=== PATIENT | female | born 1955 | race Caucasian/White ===

== ENCOUNTER 2020-03-07 13:50 | Outpatient (CLI) | payer MEDICARE, SELFPAY ==
[2020-03-07 14:57] LABS: Anion Gap 11.1 mmol/L (7-16); Blood Urea Nitrogen 19 mg/dL (7-17); Calcium 9.4 mg/dL (8.4-10.2); Carbon Dioxide 32 mmol/L (22-30); Chloride 100 mmol/L (98-107); Estimated Glomerular Filt Rate > 60; Glucose 208 mg/dL (65-105); Potassium 4.1 mmol/L (3.4-5.0); Sodium 139 mmol/L (137-145)
== END 2020-03-07 13:51 | disposition home or self-care (01) ==
PROVIDERS: Visit Provider Internal Medicine Cardiovascular Disease
DX: E11.59 Type 2 diabetes mellitus with other circulatory complications (principal); I10 Essential (primary) hypertension
CPT/HCPCS: 36415; 80048

== ENCOUNTER 2020-11-06 09:15 | Outpatient (CLI) | payer MEDICARE, OTHER, SELFPAY ==
[2020-11-06 10:32] LABS: Free T4 Free Thyroxine 1.15 ng/mL (0.78-2.19)
== END 2020-11-06 09:16 | disposition home or self-care (01) ==
PROVIDERS: Visit Provider Internal Medicine Cardiovascular Disease
DX: R00.2 Palpitations (principal); R00.0 Tachycardia, unspecified; I48.0 Paroxysmal atrial fibrillation
CPT/HCPCS: 36415; 84439; 84443

== ENCOUNTER 2021-07-10 19:47 | Emergency (ER) | payer MEDICARE, OTHER, SELFPAY ==
--- NOTE | ~2021-07-10 | XR_ITS ---
EXAMINATION: XR chest 2V 07/10/2021 20:27 INDICATION: Generalized weakness and shortness of breath. History of A. fib. PROCEDURE: 2 view chest COMPARISON: No prior studies for comparison. FINDINGS: The lungs are clear. The cardiomediastinal silhouette is within normal limits. There are no pleural effusions. There is no pneumothorax suspected. IMPRESSION: 1: NO ACUTE CARDIOPULMONARY DISEASE. Reviewed, dictated and finalized at location A. EON PARTNER
[2021-07-10 19:50] VITALS: BP 138/68; PULSE 102; RESP 20; TEMP 36.9; O2SAT 96
--- NOTE | 2021-07-10 20:13 | ECG_ITS ---
Measurements Intervals [place] Rate: 96 P: -27 PA: 156 QRS: -12 QRSD: 86 T: 18 QT: 321 QTc: 406 Interpretive Statements SINUS RHYTHM VOLTAGE CRITERIA FOR LVH BORDERLINE R WAVE PROGRESSION, ANTERIOR LEADS BASELINE ARTIFACT- I, II, AVR, AVL, AVF BORDERLINE ECG Electronically Signed On 07-10-2021 22:05:42 CUSTOMER SALES CONSULTANT by Zach Elkins D.O.
[2021-07-10 21:45] LABS: Basophils Percent Auto 0.2 % (0.2-1.2); Eosinophils Percent Auto 0.1 % (0-4.4); Hematocrit 38.6 % (37.0-47.0); Hemoglobin 13.4 g/dL (12.0-15.0); Immature Granulocyte Absolute 0.04 K/mm3 (0.00-0.031); Immature Granulocyte Percent A 0.5 % (0-0.5); Immature Platelet Fraction Pct 7.3 % (0.9-11.2); Lymphocytes Absolute Auto 1.49 K/mm3 (0.9-3.2); Lymphocytes Percent Auto 17.1 % (18.3-44.2); Mean Corpuscular HGB Conc 34.7 g/dl (32-36); Mean Corpuscular Hemoglobin 32.1 pg (26-34); Mean Corpuscular Volume 92.3 fl (80-100); Mean Platelet Volume 11.6 fl (7.4-10.4); Monocytes Absolute Auto 0.8 K/mm3 (0.1-0.6); Monocytes Percent Auto 9.3 % (2.6-8.5); Neutrophils Absolute Auto 6.3 K/mm3 (1.3-6.7); Neutrophils Percent Auto 72.8 % (45.5-73.1); Platelet Count Result 113 k/mm3 (150-375); Red Blood Count 4.18 M/mm3 (4.2-5.4); Red Cell Distribution Width 11.9 % (11.5-14.5); White Blood Count 8.7 K/mm3 (4.5-10.0)
--- NOTE | 2021-07-10 21:48 | ED.WEAKNESS ---
HPI - Weakness General Chief complaint: Weakness Stated complaint: Weakness, COVID Time Seen by Provider: 07/10/21 20:57 Source: RN notes reviewed History of Present Illness HPI Narrative: Patient presents to emergency department from home for weakness. Patient states she has been having progressive symptoms for the past 1 week. She states her tested positive for Covid approximately 2 weeks ago she states she did not take test that she felt like she was likely positive with her symptoms she states that she has been having a cough this been nonproductive as well as shortness of breath with ambulation she notes intermittent subjective fevers and nausea decreased appetite she denies any chest pain abdominal pain or diarrhea. Patient states she is on Eliquis for atrial fibrillation Related Data Home Medications Medication Instructions Recorded Confirmed apixaban [Eliquis] 5 mg PO BID 07/07/19 07/07/19 furosemide 07/10/21 insulin glargine [Basaglar KwikPen SUBCUT 07/10/21 U-100 Insulin] losartan 07/10/21 metformin mg BID 07/10/21 metoprolol succinate PO 07/10/21 simvastatin mg 07/10/21 Allergies Allergy/AdvReac Type Severity Reaction Status Date / Time No Known Allergies Allergy Verified 07/10/21 21:06 Review of Systems Review of Systems: Gen.: Subjective fevers Eyes: Denies eye pain or visual change ENT: Denies congestion Respiratory: See HPI CV: Denies chest pain or palpitations GI: Denies abdominal pain or diarrhea. Reports nausea Musculoskeletal: Denies back pain or muscle pain Neuro: Ports weakness Skin: Denies rash Except as documented, all other systems reviewed and negative FORMERLY [facility], [facility] Past Medical History Medical History (Updated 07/10/21 @ 23:08 by Mychal Hopson DO) A-fib Diabetes HLD (hyperlipidemia) HTN (hypertension) Surgical History Surgical History History of knee replacement bilateral knees Social History Social History Gender identity (if verbalized by the patient): Female Exam Narrative: APPEARANCE: No acute distress, nontoxic, resting in bed EYES: EOMI HEENT: Normocephalic, atraumatic, OMM RESPIRATORY: No respiratory distress Clear to auscultation bilaterally with no rhonchi wheezing or rales. CARDIOVASCULAR: Regular rate and rhythm without murmurs rubs or gallops. ABDOMINAL: Soft, nontender, nondistended, no rebound or guarding MUSCULOSKELETAl: Moves all extremities. No clubbing, cyanosis or edema. NEURO: Awake and alert. Following commands, speech normal, no focal deficits SKIN:: Warm, dry. No rashes lesions or abrasions PSYCHIATRIC: Normal affect/mood, Course Course Emergency Course: Patient states she is feeling better at this time Patient able to walk to the restroom with no difficulty Discussed with patient results of workup and diagnosis. Discussed need for follow-up with primary care, proper use of medication, and reasons to return to the emergency department. Patient understands and agrees to current treatment plan Vital Signs Vital signs: Vital Signs Temperature 98.4 F 07/10/21 19:50 Pulse Rate 102 H 07/10/21 19:50 Respiratory Rate 20 07/10/21 19:50 Blood Pressure 138/68 07/10/21 19:50 Pulse Oximetry 96 07/10/21 19:50 Temperature 98.4 F 07/10/21 19:50 Pulse Rate 90 07/10/21 22:41 Respiratory Rate 20 07/10/21 22:41 Blood Pressure 139/67 07/10/21 22:41 Pulse Oximetry 99 07/10/21 22:41 MDM - Weakness MDM Narrative Medical decision making narrative: Patient presents for generalized weakness over the past week. Patient has been with Covid and suspect the patient also is Covid positive and swab was sent patient on work-up was found to have UTI treated with antibiotics also found to have hypokalemia and given potassium in ED. patient is on Eliquis which she has been taking and is adequately coagulate
[2021-07-10 21:54] LABS: Alanine Aminotransferase 36 U/L (4-35); Albumin Level 3.9 g/dL (3.5-5.1); Alkaline Phosphatase 92 U/L (38-126); Anion Gap 9 mmol/L (8-16); Aspartate Amino Transferase 43 U/L (14-36); Bilirubin,Total 0.7 mg/dL (0.2-1.3); Blood Urea Nitrogen 18 mg/dL (7-17); Calcium 8.7 mg/dL (8.4-10.2); Carbon Dioxide 29 mmol/L (22-30); Chloride 95 mmol/L (98-107); Estimated CRCL calculation 73 ml/min; Estimated Glomerular Filt Rate > 60; Glucose 214 mg/dL (65-110); Potassium 2.9 mmol/L (3.4-5.0); Sodium 133 mmol/L (137-145)
[2021-07-10 21:55] LABS: INR 1.4; Prothrombin Time 17.1 Seconds (11.1-14.7)
[2021-07-10 21:56] LABS: Partial Thromboplastin Time 33.3 SECONDS (22.3-36.8)
[2021-07-10 21:57] VITALS: BP 141/76; PULSE 93; RESP 16; O2SAT 98
[2021-07-10] MEDS: POTASSIUM CHLORIDE 20 MEQ TABLET 40 MEQ PO (22:02)
[2021-07-10 22:04] LABS: Lipase 29 U/L (23-300)
[2021-07-10] MEDS: SODIUM CHLORIDE 0.9% IV 1,000 ML 999 ML IV CONT (22:04)
[2021-07-10 22:10] LABS: Band Neutrophils Percent 2 % (0-6); Lymphocytes Absolute Manual 1.91 K/mm3 (1.1-4.5); Monocytes Absolute Manual 0.78 K/mm3 (0.1-0.90); Monocytes Percent Manual 9 % (3-9); Neutrophils Percent Manual 67 % (46-73); Total Cells Counted 100
[2021-07-10 22:11] LABS: Platelet Estimate Decreased (Adequate)
[2021-07-10 22:14] LABS: Magnesium 1.8 mg/dL (1.6-2.3)
[2021-07-10 22:23] LABS: Add Urine Microscopic? YES; Appearance Urine Cloudy (Clear); Bacteria Urine 2+ /hpf; Bilirubin Urine Negative (Negative); Blood Urine Negative (Negative); Color Urine Yellow (Yellow); Glucose Urine UA Negative (Negative); Ketones Urine Negative (Negative); Leukocyte Esterase Ur 3+ LEU/UL (Negative); Mucus Urine Rare /lpf; Nitrate Urine Negative (Negative); Protein Urine Negative (Negative); Specific Grav Ur 1.016 (1.001-1.035); Squamous Epithelial Cell Urine Many /hpf (Few); Urobilinogen Urine Negative mg/dL (<2.0); WBC Urine 31-50 /hpf
[2021-07-10 22:41] VITALS: BP 139/67; PULSE 90; RESP 20; O2SAT 99
[2021-07-10 23:33] VITALS: BP 139/67; PULSE 103; RESP 16; O2SAT 100
[2021-07-11 17:10] LABS: SARS-CoV-2 RNA PCR Positive
== END 2021-07-10 23:34 | disposition home or self-care (01) ==
PROVIDERS: Emergency Provider Emergency Medicine
DX: U07.1 COVID-19 (principal); N39.0 Urinary tract infection, site not specified; R53.1 Weakness; I48.91 Unspecified atrial fibrillation; Z79.01 Long term (current) use of anticoagulants; E11.9 Type 2 diabetes mellitus without complications; E78.5 Hyperlipidemia, unspecified; I10 Essential (primary) hypertension; Z79.84 Long term (current) use of oral hypoglycemic drugs; Z79.4 Long term (current) use of insulin; Z96.653 Presence of artificial knee joint, bilateral; E87.6 Hypokalemia; R94.31 Abnormal electrocardiogram [ECG] [EKG]
CPT/HCPCS: 36415; 71046; 80053; 81001; 83690; 83735; 85025; 85055; 85610; 85730; 87086; 87088; 93005; 96365; 99284; A9270; C9803; J0696; J7030; U0003; U0005

== ENCOUNTER 2023-01-11 12:39 | Emergency (ER) | payer MEDICARE, OTHER, SELFPAY ==
--- NOTE | ~2023-01-11 | XR_ITS ---
EXAMINATION: XR ribs LT 2V w CXR 2V DATE: 01/11/2023 13:40 INDICATION: Chest pain. Fall. TECHNIQUE: Frontal and lateral views of the chest and 2 views on 4 radiographs of the left ribs were obtained. COMPARISON: Chest 2 views 07/10/2021, chest CT 05/18/2018 FINDINGS: CHEST TWO VIEWS: The chest demonstrates clear lungs without pneumonia, pleural effusion, or pneumotho rax. The heart size is normal. Surgical clips in the right upper quadrant are likely from cholecystec alena. LEFT RIBS: There is no rib fracture. IMPRESSION: 1. No rib fracture. Reviewed, dictated and finalized at location A. IMPRESSION: 1. No rib fracture.
[2023-01-11 12:41] VITALS: BP 150/75; PULSE 87; RESP 16; TEMP 36.6; O2SAT 100
--- NOTE | 2023-01-11 13:37 | ED.GENADULT ---
HPI - General Adult General Chief complaint: Extremity Injury, Upper Stated complaint: fall last night-left wrist and rib pain Time Seen by Provider: 01/11/23 12:54 History of Present Illness HPI narrative: Patient is a 67-year-old female who presents ER with pain to the left anterior chest. She had a trip and fall in her yard yesterday. She did develop bruising to her left wrist but has normal range of motion no pain. She has pain to her anterior left chest that is worse with deep breath. No dyspnea. No cough. She has taken [id number] medication for her pain. Patient did not strike her head or lose consciousness Related Data Home Medications Medication Instructions Recorded Confirmed apixaban 5 mg tablet (Eliquis) 5 mg PO BID 07/07/19 07/07/19 furosemide 40 mg tablet 07/10/21 insulin glargine 100 unit/mL (3 subcut 07/10/21 mL) subcutaneous pen (Basaglar KwikPen U-100 Insulin) losartan 50 mg tablet 07/10/21 metformin 1,000 mg tablet mg BID 07/10/21 metoprolol succinate 25 mg PO 07/10/21 tablet,extended release 24 hr simvastatin 40 mg tablet mg 07/10/21 Allergies Allergy/AdvReac Type Severity Reaction Status Date / Time No Known Allergies Allergy Verified 01/11/23 12:39 Review of Systems Cardiovascular: Cardiovascular: Reports chest pain, Denies rapid heart rate and Denies radiating jaw, neck or arm pain Respiratory: Respiratory: Denies cough, Denies dyspnea and Denies wheezing Gastrointestinal: Gastrointestinal: Denies abdominal pain, Denies nausea and Denies vomiting Musculoskeletal: Musculoskeletal: Denies back pain, Denies arthralgias and Denies joint swelling Neurologic: Denies syncope, Denies headache(s), Denies focal weakness and Denies numbness PMF Past Medical History Medical History (Updated 01/11/23 @ 14:33 by Antonio Wall MD) A-fib Diabetes HLD (hyperlipidemia) HTN (hypertension) Surgical History Surgical History History of knee replacement bilateral knees Social History Social History Gender identity (if verbalized by the patient): Female Exam Narrative: GENERAL: Well-appearing, well-nourished, and in no acute distress. HEAD: Normocephalic, atraumatic. EYES: PERRL and EOMI. ENT: Mucous membranes moist. CHEST: Clear to auscultation. No respiratory distress. Palpation left anterior chest wall. Breast. HEART: Regular rate and rhythm. Normal peripheral pulses. EXTREMITIES: Normal range of motion. No edema. Bruising dorsal aspect left wrist/hand without joint line tenderness or limitation range of motion. SKIN: Warm, dry, no rash. NEURO: Alert and oriented x3. PSYCH: Normal mood and affect. Course Course Emergency Course: Patient informed of results. Discussed pain control with acetaminophen that she is on a blood thinner and cannot take anti-inflammatories. Vital Signs Vital signs: Vital Signs Temperature 97.8 F 01/11/23 12:41 Pulse Rate 87 01/11/23 12:41 Respiratory Rate 16 01/11/23 12:41 Blood Pressure 150/75 H 01/11/23 12:41 Pulse Oximetry 100 01/11/23 12:41 Oxygen Delivery Room Air 01/11/23 12:41 Temperature 97.8 F 01/11/23 12:41 Pulse Rate 87 01/11/23 12:41 Respiratory Rate 16 01/11/23 12:41 Blood Pressure 150/75 H 01/11/23 12:41 Pulse Oximetry 100 01/11/23 12:41 Oxygen Delivery Room Air 01/11/23 12:41 Medical Decision Making Vital Signs Vital Signs: Vital Signs Temperature 97.8 F 01/11/23 12:41 Pulse Rate 87 01/11/23 12:41 Respiratory Rate 16 01/11/23 12:41 Blood Pressure 150/75 H 01/11/23 12:41 Pulse Oximetry 100 01/11/23 12:41 Oxygen Delivery Room Air 01/11/23 12:41 Temperature 97.8 F 01/11/23 12:41 Pulse Rate 87 01/11/23 12:41 Respiratory Rate 16 01/11/23 12:41 Blood Pressure 150/75 H 01/11/23 12:41 Pulse Oximetry 1
== END 2023-01-11 14:40 | disposition home or self-care (01) ==
PROVIDERS: Emergency Provider Emergency Medicine
DX: R07.81 Pleurodynia (principal); I48.91 Unspecified atrial fibrillation; E11.9 Type 2 diabetes mellitus without complications; E78.5 Hyperlipidemia, unspecified; I10 Essential (primary) hypertension; Z79.84 Long term (current) use of oral hypoglycemic drugs; Z79.01 Long term (current) use of anticoagulants; Z79.4 Long term (current) use of insulin; Z96.653 Presence of artificial knee joint, bilateral
CPT/HCPCS: 71046; 71100; 99283

== ENCOUNTER 2025-02-22 23:25 | Emergency (ER) | payer MEDICARE, OTHER, SELFPAY ==
--- NOTE | ~2025-02-22 | XR_ITS ---
XR chest 2V Ordering provider: Walter Wilkes MD History: 69 years Female with . Chest Pain ACOSS CHEST AND SHOULDER BLADES . Comparison: January 11, 2023 FINDINGS: MEDIASTINUM: The cardiac silhouette is not enlarged. LUNGS: No infiltrates, effusions or pneumothorax. OTHER: No free air under the diaphragm. Degenerative changes of the spine. IMPRESSION: No acute cardiopulmonary pathology. Reviewed, dictated and finalized at location A.
--- OUTSIDE RECORDS SUMMARY | 2025-02-22 23:27 | XMS_ITS | Referral Summary ---
Author Organization [facility] [address] Address [address] [place] [address] Care Team Providers Care Container Finisher Name Role Phone Shin Clifton MD Unavailable [phone] Renetta Duncan MD Primary Care Provid er Encounters Date Type Department Care Team Description 02/06/2025 1:00 PM CDT Office Visit [facility] of [address] [address] Diana Mckenzie PA Type 2 diabetes mellitus with hyperglycemia, with long-term current use of insulin (HCC) (Primary Dx); Hypertension associated with diabetes (HCC); Hyperlipidemia associated with type 2 diabetes mellitus (HCC) from Last 3 Months Allergies Active Allergy Reactions Criticality Noted Date Comments Guaifenesin Headache Low 10/12/2003 Semaglutide Nausea & Vomiting Medium 05/10/2024 Medications cholecalcifer ol (VITAMIN D3) 1,000 unit capsule take 1 by Oral route once 0 0 016 Active no.75-iron-fo late no1 (VITAFOL HARESH) 18 mg iron- 1 mg tablet take 1 tablet by oral route every day 0 0 016 Active simvastatin (ZOCOR) 40 mg tablet take 1 tablet by oral route every day in the evening 0 0 016 Active losartan (COZAAR) 50 mg tablet take 1 tablet by oral route every day 0 0 016 Active cranberry 400 mg capsule 400 mg. 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 before breakfast 45 mL 3 024 Active insulin aspart (NovoLOG) 100 unit/mL (3 mL) pen for injection Inject 10 Units under the skin 2 (two) times a day before breakfast and dinner 15 mL 11 Active Additional Information Patient taking differently: 5 Unitssubcutaneous 2 times daily before meals (bkfst, dinner), Reported on 02/06/2025 glipiZIDE XL (GLUCOTROL XL) 10 mg 24 hr tabletIndicat ions:type 2 diabetes mellitus Take 1 tablet (10 mg total) by mouth daily 90 tablet 3 024 2024 Active metFORMIN (GLUCOPHAGE) 1,000 mg tabletIndicat ions:Type 2 diabetes mellitus with hyperglycemia , with long-term current use of insulin ([facility]) Take 1 tablet (1,000 mg total) by mouth 2 (two) times a day with meals 180 tablet 3 Active Dexcom G7 Sensor deviceIndicat ions:Type 2 diabetes mellitus with hyperglycemia , with long-term current use of insulin ([facility]) Change sensor every 10 days Dx: E11.65 3 each 024 Active OneTouch Delica Plus Lancet 33 gauge miscIndicatio ns:Type 2 diabetes mellitus with hyperglycemia , with long-term current use of insulin ([facility]) TEST BLOOD SUGAR 3 TIMES A DAY Dx: E11.65 100 each 025 Active blood glucose diagnostic (OneTouch Ultra Blue Test Strip) stripIndicati ons:Type 2 diabetes mellitus with hyperglycemia , with long-term current use of insulin ([facility]) TEST BLOOD SUGAR 3 TIMES A DAY. E11.65, Z79.4 300 each 1 025 Active clobetasoL (TEMOVATE) 0.05 % cream APPLY THIN COAT TO AFFECTED AREA TWICE A DAY 025 Active metoprolol XL (TOPROL-XL) 25 mg extended release tablet TAKE 1 TABLET DAILY 90 tablet 2 025 Active OneTouch Ultra Blue Test Strip strip TEST BLOOD SUGAR 3 TIMES A DAY 021 2024 Discontinued(R eorder) metoprolol XL (TOPROL-XL) 25 mg extended release tablet TAKE 1 TABLET DAILY 90 tablet 2 024 2024 Discontinued Active Problems Problem Noted Date Diagnosed Date Hyperlipidemia associated with type 2 diabetes jenny ardon 09/12/2024 Assessment & Plan (02/06/2025 3:57 PM CDT): Chronic problem. On statin therapy, no changes. Assessment & Plan (09/19/2024 1:19 PM MANAGER ASSET): Chronic problem. On statin therapy, no changes. Type 2 diabetes mellitus wit h hyperglycemia, with long-term current use of insulin 05/10/2024 Assessment & Plan (02/06/2025 3:58 PM CDT): Chronic problem, not at goal with nocturnal hypoglycemia. Stop glipizide. If persistent lows adjust Basaglar as follows. Call if persistent lows even after these adjustments. She just had routine labs with PCP, will request copy for our records. Stop glipizide. Continue metformin. Continue Basaglar 19 in the morning and 14 at night. If after stopping the glipizide, you're still getting woken up with low sugars overnight, change Basaglar to 30 units in the morning. Call after this if you're still having low sugars. Continue same Novolog 8-10 units at meals. Assessment & Plan (09/19/2024 3:49 PM MANAGER ASSET): Chronic problem, improving but not at goal with hypoglycemia. Try lowering Basaglar to 14 units at night. Continue 19 units in the morning. If this does not resolve her lows she can let us know and we'll lower the glipizide dose (she currently has a lot of 10 mg left so will try adjusting the Basaglar first instead). She understands. Continue metformin and NL the same. Watch the carb intake at her 9pm snack. Assessment & Plan (05/10/2024 12:57 PM CDT): Chronic, not at goal Hemoglobin A1c target between 7- 7.5 with glucoses in the 120 to 160 range were discussed Importance of exercise also explained. I encouraged the patient to at least 30 minutes daily aerobic and resistance exercise Patient to continue working on low calorie low carb diet Medication adjusted as follows: Continue monitoring your sugars with DEXCOM Stay on Basaglar, 38 units in the morning Take Novolog, 5 units with lunch and dinner. For sugar over 200, take 7 units Take Glipizide , only in the morning Stay on Metformin 1000 mg, twice a day, with meals PSVT (paroxysmal supraventricular tachycardia) 0 12/21/2022 Lipid screening 10/21/2022 History of COVID-19 10/07/2021 Tachycardia 11/06/2020 Palpitations 11/06/2020 Hypertension associated with diabetes 03/06/2019 Assessment & Plan (02/06/2025 3:57 PM CDT): Chronic problem, Controlled on losartan, furosemide, metoprolol. No changes. Assessment & Plan (09/19/2024 1:18 PM MANAGER ASSET): Chronic problem, Controlled on losartan, furosemide, metoprolol. No changes. GRESHAM (dyspnea on exertion) 05/18/2018 Chest pain 05/09/2018 Chronic anticoagulation 09/28/2017 Hypertension 09/28/2017 PAF (paroxysmal atrial fibrillation) 09/28/2017 Morbid obesity with BMI of 40.0-44.9, adult 02/13 Body mass index 40+ - severely obese 09/15/2016 Overview (11/19/2016): Morbid obesity with BMI of 40.0-44.9, adult Essential hypertension 05/22/2016 Overview (11/19/2016): Essential hypertension Type 2 diabetes mellitus with complication 05/22 Overview (11/19/2016): Type 2 diabetes mellitus without complication, without long-term current use of insulin Atrial fibrillation, currently in sinus rhythm 1 Overview (11/19/2016): Atrial fibrillation, currently in sinus rhythm Obesity with body mass index 30 or greater 05/22 Overview (11/20/2016): Obesity with body mass index 30 or greater Social History Tobacco Use Types Packs/Day Years Used Date Smoking Tobacco: Never Cigarettes Smokeless Tobacco: Never Tobacco Cessation:Counseling Given: Not Answered Alcohol Use Standard Drinks/Week Comments No 0 (1 standard drink = 0.6 oz pur e alcohol) AUDIT-C Answer Date Recorded Q1: How often do you have a drink containing alcohol? Never 05/10/2024 Q2: How many drinks containi ng alcohol do you have on a typical day when you are drinking? Patient does not drink Q3: How often do you have si x or more drinks on one occasion? Never 05/10/2024 PHQ-2 Answer Date Recorded PHQ-2 Total Score (If total score is 3 or more points, staff should administer the PHQ-9) 0 05/10/2024 Comments No Sex and Gender Information Value Date Recorded Sex Assigned at Not on file Legal Sex Female 3:47 PM MANAGER ASSET Gender Identity Female 10/30/2020 10:21 AM CDT Sexual Orientation Straight 05/10/2024 11 :00 AM CDT Last Filed Vital Signs Vital Sign Reading Time Taken Comments Blood Pressure 116/64 02/06/2025 1:04 PM CDT Pulse 85 02/06/2025 1:04 PM CDT Temperature 36.6 C (97.9 F) 05/10/2018 8:19 AM CDT Respiratory Rate 16 02/06/2025 1:04 PM CDT Oxygen Saturation 98% 08/24/2024 8:15 AM MANAGER ASSET Inhaled Oxygen Concentration - - Weight 117.9 kg (260 lb) 02/06/2025 1:04 PM CDT Height 162.6 cm (5' 4) 02/06/2025 1:04 PM CDT Body Mass Index 44.63 02/06/2025 1:04 PM CDT Plan of Treatment Not on file Procedures Procedure Name Priority Date/Time Associated Diagnosis Comments POCT LIPID PANEL Routine 02/06/2025 1:07 PM CDT Type 2 diabetes mellitus with hyperglycemia, with long-term current use of insulin (HCC) Hyperlipidemia associated with type 2 diabetes mellitus (HCC) POCT GLUCOSE Routine 02/06/2025 1:07 PM CDT Type 2 diabetes mellitus with hyperglycemia, with long-term current use of insulin (HCC) POCT HEMOGLOBIN A1C Routine 02/06/2025 1 :07 PM CDT Type 2 diabetes mellitus with hyperglycemia, with long-term current use of insulin (HCC) HM CREATININE Routine 03/29/2024 5:44 PM CDT HM ALBUMIN CREATININE RATIO, URINE Routine 03/29/2024 5:44 PM CDT from Last 3 Months or Most Recently Relevant to Health Maintenance Results * (ABNORMAL) POCT hemoglobin A1c (02/06/2025 1:07 PM CDT) [facility] Hemoglobin A1C, POC 6.0(A) 4.0 - 5.6 % Capillary blood 02/06/2025 1 :07 PM CDT us Diana WHITAKER POINT OF CARE TEST AARON CALHOUN Final Result * POCT lipid panel (02/06/2025 1:07 PM CDT) [facility] Cholesterol, POC 116 <200 MG/DL HDL, POC 49 >=40 mg/dL Triglycerides, POC 110 <=149 mg/dL LDL Cholesterol POC 45 <=129 mg/dL Chol/HDL Ratio, POC 2.4 NONE Non-HDL Cholesterol, POC 67 NONE mg/dL Cholesterol Total, POC 116 30 - 199 mg/dL Capillary blood 02/06/2025 1 :07 PM CDT Result [facility] Diana WHITAKER POINT OF CARE TEST ORDE RABLES Final Result * POCT glucose (02/06/2025 1:07 PM CDT) Glucose Blood, POC 73 Normal Fasting 70 - 100, Random <200 mg/dL Comment:PPG 2 Hrs Blood 02/06/2025 1:07 PM CDT Result [facility] Diana WHITAKER POINT OF CARE TEST ORDE RABLES Final Result * (ABNORMAL) HM ALBUMIN CREATININE RATIO, URINE (03/29/2024 5:44 PM CDT) SCRIBED HM ALBUMIN CREATININE RATIO, URINE 13(A) 40 - 180 EXTERNAL LAB Result [facility] Historical Provider HEALTH MAINTENANCE Edited Result - Final Performing Organization Address City/[facility]/ZIP Co de Phone Number EXTERNAL LAB * HM CREATININE (03/29/2024 5:44 PM CDT) SCRIBED Creatinine 0.68 0.60 - 1.10 mg/dl EXTERNAL LAB SCRIBED eGFR in >90 >90 EXTERNAL LAB SCRIBED eGFR in NonAfrican Nigerien >90 >90 EXTERNAL LAB Result [facility] Historical Provider HEALTH MAINTENANCE Edited Result - Final EXTERNAL LAB from Last 3 Months or Most Recently Relevant to Health Maintenance Insurance MEDICARE [employer] Advance Directives For more information, please contact: [phone] * Full Code (Latest Code Status on File) Date Activated Date Inactivated Comments 05/09/2018 11:44 PM 05/10/2018 8:01 PM Care Teams Container Finisher Relationship Specialty Start Date End Date Renetta Duncan MD [address] [place] [address] PCP - General Internal Medicine 10/07/21 Shin Clifton MD [address] [facility] [address] Consulting Physician Cardiology 05/10/18
--- OUTSIDE RECORDS SUMMARY | 2025-02-22 23:27 | XMS_ITS | Clinical Summary ---
Author Organization [facility] Address [address] [place] [address] Care Team Providers Care Barker Peeler Name Role Phone Unavailable Primary Care Provider Unavailabl e Encounters Date Type Department Care Team Description 01/30/2025 External Device Data [facility] ABSTRACTION Provider, Abstract 01/09/2025 External Device Data [facility] ABSTRACTION Provider, Abstract 01/04/2025 External Device Data [facility] ABSTRACTION Provider, Abstract 01/03/2025 External Device Data [facility] ABSTRACTION Provider, Abstract 01/02/2025 External Device Data [facility] ABSTRACTION Provider, Abstract from Last 3 Months Social History Tobacco Use Types Packs/Day Years Used Date Smoking Tobacco: Never Assessed Comments No Sex and Gender Information Value Date Recorded Sex Assigned at Not on file Legal 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 Gender Identity Not on file Sexual Orientation Not on file Plan of Treatment Health Maintenance Due Date Last Done Comments DIABETES ANNUAL RETINAL EXAM 1972 DIABETES MICROALBUMIN ANNUAL SCREEN 1972 LDL CHOLESTEROL ANNUAL 1972 PNEUMOCOCCAL VACCINE 50+ YEA RS (1 of 2 - PCV) 1973 COLORECTAL SCREENING 10/17/1999 Colorectal Cancer Screening 10/17/1999 FIT-DNA Q 3 years 10/17/1999 FIT/FOBT Q 1 year 10/17/1999 Flex Sig/CT Colonography Q 5 years 10/17/1999 ZOSTER VACCINE (1 of 2) 2004 RSV VACCINE (60+ or ) (1 - Risk 60-74 years 1-dose series) 2014 OSTEOPOROSIS SCREENING 03/12/2025 03/12/2020, 2012 INFLUENZA VACCINE (#1) 2025 07/27/2023 DIABETES HBA1C Q 6 MONTHS 05/15/20252024, 09/19/2024, 07/31/2024, Additional history exists DIABETES ANNUAL FOOT EXAM 09/19/2025 09/19/2024 BREAST CANCER SCREENING 11/16/2025 11/17/19 25, 11/15/2023, 11/12/2022, Additional history exists DTAP/TDAP/TD VACCINES (2 - T d or Tdap) 11/07/2033 11/08/2023 Procedures Procedure Name Priority Date/Time Associated Diagnosis Comments MAMMO 3D AUDRA SCREEN BILAT W OR WO CAD Routine 11/16/2024 10:44 AM CDT Encounter for screening mammogram for malignant neoplasm of breast from Last 3 Months or Most Recently Relevant to Health Maintenance Results * MAMMO 3D AUDRA SCREEN BILAT W OR WO CAD (11/16/2024 10:44 AM CDT) Anatomical Region Laterality Modality Breast Bilateral Mammography 11/16/2024 10:4 5 AM CDT Impressions 11/16/2024 11:05 AM CDT IMPRESSION: NO RADIOGRAPHIC EVIDENCE OF MALIGNANCY. BI-RADS CATEGORY 1-Negative. Narrative 11/16/2024 11:05 AM CDT Computer Assisted Detection (CAD) used during interpretation. INDICATION: Screening. CC and MLO views of both breasts were obtained. 3D tomosynthesis was also utilized. Compared to 11/15/23. There has been no change. There is no abnormal mass or grouped microcalcifications present to suggest malignant disease. Breast Density: Almost entirely fatty. Renetta Duncan MD MAMMO ORDERABLES Final Resul t from Last 3 Months or Most Recently Relevant to Health Maintenance Insurance GENERIC PAYOR MEDICARE PART A AND B
--- OUTSIDE RECORDS SUMMARY | 2025-02-22 23:27 | XMS_ITS | Encounter Summary ---
Author Organization [facility] Address [address] [place] [address] Care Team Providers Care Strategic Account Manager Name Role Phone Fly Mcnally DO Primary Care Provider [phone] Fly Mcnally MD Primary Care Provider Shin Clifton MD Unavailable [phone] Renetta Duncan MD Primary Care Provid er Encounter Details Date Type Department Care Team (Late st Contact Info) Description 04/16/2016 Orders Only [facility] ProviderMarco A MD [address] [place] [id number] Social History Tobacco Use Types Packs/Day Years Used Date Smoking Tobacco: Never Assessed Comments Unknown Sex and Gender Information Value Date Recorded Sex Assigned at Not on file 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 Historical Provider [facility] JEFRY SAWYER Final Result documented in this encounter Visit Diagnoses Not on filedocumented in this encounter Care Teams Strategic Account Manager Relationship Specialty Start Date End Date Fly Mcnally DO [address] [place] [address] PCP - General 09/18/10 11/28/17 Fly Mcnally MD [address] [place] [address] PCP - General Internal Medicine 11/29/17 10/06/21 Renetta Duncan MD [address] [place] [address] PCP - General Internal Medicine 10/07/21 Shin Clifton MD [address] [facility] [address] [place] [address] Consulting Physician Cardiology 05/10/18 documented as of this encounter
--- OUTSIDE RECORDS SUMMARY | 2025-02-22 23:27 | XMS_ITS | Clinical Summary ---
Author Organization [facility] [employer] Address [address] [place] [address] Care Team Providers Care Moth Proofer Name Role Phone Fly Mcnally MD Primary Care Provider [phone] Albino Garcia MD Unavailable [phone] Source Comments [facility],non-owned Affiliates and Associated Physician Practices is amultiple site organization consisting of ambulatory clinics and hospital sitesin [place], [place], [place] and [place]. This disclosure is being madepursuant to the Care Everywhere program and may not contain all information available regarding this patient. Last updated 18.[facility] Allergies Active Allergy Reactions Criticality Noted Date Comments Guaifenesin Headache Low 10/12/2003 Medications * Be aware that medications may not be up to date on this document. Alwaysverify current medications with the patient. atenolol (TENORMIN) 25 MG tablet Take 12.5 mg by mouth daily before breakfast. Instructed to take AM of surgery 1 Active losartan (COZAAR) 100 MG tablet Take 50 mg by mouth once daily after breakfast. Instructed to take AM of surgery 1 Active furosemide (LASIX) 20 MG tablet Take 20 mg by mouth daily before breakfast. 1 Active glyBURIDE (DIABETA; MICRONASE) 2.5 MG tablet Take 2.5 mg by mouth daily with breakfast. Active metFORMIN (GLUCOPHAGE) 850 MG tablet Take 850 mg by mouth 2 times daily with breakfast and dinner. Active simvastatin (ZOCOR) 40 MG tablet Take 40 mg by mouth at bedtime. Active VITAMINS PO Take by mouth once daily after breakfast. Active naproxen (NAPROSYN) 500 MG tablet Take 500 mg by mouth 2 times daily. 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 Gender Identity Female 06/12/2021 9:22 AM CDT Sexual Orientation Straight 06/12/2021 9: 22 AM CDT Last Filed Vital Signs Vital Sign Reading Time Taken Comments Blood Pressure 114/70 04/03/2011 8:58 AM CDT Pulse 83 04/03/2011 5:55 AM CDT Temperature 36.5 C (97.7 F) 04/03/2011 5:55 AM CDT Respiratory Rate 18 04/03/2011 5:55 AM CDT Oxygen Saturation 98% 04/03/2011 5:55 AM CDT Inhaled Oxygen Concentration - - Weight 115.7 kg (255 lb) 04/24/2016 8:57 AM CDT Height 162.6 cm (5' 4) 04/24/2016 8:57 AM CDT Body Mass Index 43.77 04/24/2016 8:57 AM CDT Plan of Treatment Health Maintenance Due Date Last Done Comments BONE DENSITY TESTING 1955 COLOGUARD (AGES 45-75) - COL ON CA SCREENING 1954 COLON MONITORING 1954 COLONOSCOPY - COLON CA SCREENING 1954 CT COLONOGRAPHY - COLON CA SCREENING 1954 Colorectal Cancer Screening 1954 FIT - COLON CA SCREENING 1954 FLEX SIG - COLON CA SCREENING 1954 MAMMOGRAM 1955 MEDICARE AWV 12 MONTHS 1954 HEPATITIS C SCREENING 10/11/1972 DTAP/TDAP/TD VACCINES (1 - Tdap) 1973 PNEUMOCOCCAL VACCINE 50+ (1 of 1 - PCV) 2004 ZOSTER VACCINE (1 of 2) 2004 Respiratory Syncytial Virus (RSV) Vaccine Pt: or over 60 yrs (1 - Risk 60-74 years 1-dose series) 2014 COVID-19 VACCINE (3 - 2023-2 5 season) 2024 11/15/2020, 10/25/2020 DEPRESSION SCREENING 08/16/2024 INFLUENZA VACCINE (#1) 2025 HEPATITIS B VACCINE Aged Out No longe r eligible based on patient's age to complete this topic HIB VACCINE Aged Out No longer eligi ble based on patient's age to complete this topic HPV VACCINE Aged Out No longer eligi ble based on patient's age to complete this topic MENINGOCOCCAL (Group B) VACCINE SHARED DECISION-MAKING Aged Out No longer eligible based on patient's age to complete this topic MENINGOCOCCAL GROUPS A/C/Y/W VACCINE Aged Out No longer eligible b ased on patient's age to complete this topic Insurance MEDICARE [employer] Advance Directives Documents on File Type Date Recorded Patient Psychologist Educational Expl anation Adv Directive/Living Will/POA 10/04/2010 10:41 AM * FULL RESUSCITATION (Latest Code Status on File) Date Activated Date Inactivated Comments 03/31/2011 10:08 AM 04/04/2011 12:03 AM * Full Code Date Activated Date Inactivated Comments 09/30/2010 11:59 AM 10/04/2010 12:10 AM Care Teams Moth Proofer Relationship Specialty Start Date End Date Fly Mcnally MD [address] [facility] [place] [address] PCP - General 09/09/10 [place] [address] [facility] [place] [address] Physical Medicine and Rehabilitation 06/12/21
[2025-02-22 23:28] VITALS: BP 153/88; PULSE 104; RESP 18; TEMP 37.2; O2SAT 99
--- OUTSIDE RECORDS SUMMARY | 2025-02-22 23:28 | XMS_ITS | Clinical Summary ---
Author Organization [facility] [address] Address [address] [place] [address] Care Team Providers Care Interventional Radiology Rn Name Role Phone Shin Clifton MD Unavailable [phone] Renetta Duncan MD Primary Care Provid er Allergies Active Allergy Reactions Criticality Noted Date [...] Ultra-Fine Mini Pen Needle 31 gauge x /16 needle daily 021 Active DivideTouch Ultra2 Meter mis TEST BLOOD SUGAR 3 TIMES A DAY Active apixaban (Eliquis) 5 mg tabletIndicat ions:Atrial fibrillation, currently in sinus rhythm Take 1 tablet (5 mg total) by mouth 2 (two) times a day 180 tablet 3 Active BASAGLAR 100 unit/mL (3 mL) pen for injection Inject 38 Units under the skin pipe processor before breakfast 45 mL Active insulin aspart (NovoLOG) 100 unit/mL (3 mL) pen for injection Inject 10 Units under the skin 2 (two) times a day before breakfast and dinner 15 mL Active Additional Information Patient taking differently: 5 Unitssubcutaneous 2 times daily before meals (bkfst, dinner), Reported on 02/06/2025 glipiZIDE XL (GLUCOTROL XL) 10 mg 24 hr tabletIndicat ions:type 2 diabetes mellitus Take 1 tablet (10 mg total) by mouth daily 90 tablet 2024 Active metFORMIN (GLUCOPHAGE) 1,000 mg tabletIndicat ions:Type 2 diabetes mellitus with hyperglycemia , with long-term current use of insulin (HCC) Take 1 tablet (1,000 mg total) by mouth 2 (two) times a day with meals 180 tablet Active Dexcom G7 Sensor deviceIndicat ions:Type 2 diabetes mellitus with hyperglycemia , with long-term current use of insulin ([facility]) Change sensor every 10 days Dx: E11.65 3 each Active OneTouch Delica Plus Lancet 33 gauge miscIndicatio ns:Type 2 diabetes mellitus with hyperglycemia , with long-term current use of insulin ([facility]) TEST BLOOD SUGAR 3 TIMES A DAY Dx: E11.65 100 each 025 Active blood glucose diagnostic (OneTouch Ultra Blue Test Strip) stripIndicati ons:Type 2 diabetes mellitus with hyperglycemia , with long-term current use of insulin ([facility]) TEST BLOOD SUGAR 3 TIMES A DAY. [...] changes. Assessment & Plan (09/19/2024 1:19 PM REHAB TECH): Chronic problem. On statin therapy, no changes. [...] meals. Assessment & Plan (09/19/2024 3:49 PM REHAB TECH): Chronic problem, improving but not at goal [...] changes. Assessment & Plan (09/19/2024 1:18 PM REHAB TECH): Chronic problem, Controlled on losartan, furosemide, metoprolol. [...] with body mass index 30 or greater Encounters Date Type Department Care Team Description 02/06/2025 1:00 PM CDT Office Visit [facility] [address] [address] Diana Mckenzie PA Type 2 diabetes mellitus with hyperglycemia, with long-term current use of insulin (HCC) (Primary Dx); Hypertension associated with diabetes (HCC); Hyperlipidemia associated with type 2 diabetes mellitus (HCC) from Last 3 Months Surgical History Surgery Date Site/Laterality Comments OTHER SURGICAL HISTORY Gallbladder: cholecystectomy HYSTERECTOMY hysterectomy KNEE SURGERY JOINT REPLACEMENT 2 Total Knee Replacements Medical History Medical History Date Comments Hx Other Medical Gallbladder; Co mments: TYW 05/22/2016 - Type 2 diabetes mellitus (HCC) D iabetes type 2; Comments: AMD 05/25/2016 - Hx Other Medical obesity; Commen ts: AMD 05/25/2016 - Hx Other Medical bilateral knee replacements; Comments: AMD 05/25/2016 - Hypertension Hypertension Hx Other Medical back surgery; C omments: AMD 05/25/2016 - Family History Medical History Relation Name Comments Other Father Lung issues; Cancer Mother Mere Remy Cancer, unknow n; Cancer Sister Annie Skinner Cancer, unknown ; Relation Name Status Comments Father Mother Mere Remy Sister Annie Skinner Social History Tobacco Use Types Packs/Day Years [...] on file Legal Sex Female 3:47 PM REHAB TECH Gender Identity Female 10/30/2020 10:21 AM CDT Sexual Orientation Straight 05/10/2024 11 :00 AM CDT Obstetrics History Last Filed Vital Signs Vital Sign Reading Time Taken Comments Blood Pressure 116/64 02/06/2025 1:04 PM CDT Pulse 85 02/06/2025 1:04 PM CDT Temperature 36.6 C (97.9 F) 05/10/2018 8:19 AM CDT Respiratory Rate 16 02/06/2025 1:04 PM CDT Oxygen Saturation 98% 08/24/2024 8:15 AM REHAB TECH Inhaled Oxygen Concentration - - Weight 117.9 kg (260 lb) 02/06/2025 1:04 PM CDT Height 162.6 cm (5' 4) 02/06/2025 1:04 PM CDT Body Mass Index 44.63 02/06/2025 1:04 PM CDT Plan of Treatment Health Maintenance Due Date Last Done Comments Colon Cancer Screening-Colonoscopy 1954 Hepatitis C Screening 1954 Osteoporosis Screening-Bone Density Scan 1954 Dilated Eye Exam 1954 Hepatitis B Screening 1972 Well Visit 65+ 10/17/2019 Pneumococcal vaccine 65+ (2 of 2 - PCV) 05/06/2022 05/06/2021 Covid-19 Vaccine (3 - 2023-2 5 season) 2024 11/15/2020, 10/25/2020 Albumin Creatinine Ratio, Urine 03/29/2025 eGFR 03/29/2025 03/29/2024, 04/17, 05/09/2018, Additional history exists Influenza Vaccine (#1) 2025 05/06/2021, 2019 Depression Screening 05/10/2025 05/10/2024 Fall Risk Assessment 05/10/2025 05/10/2024 Hemoglobin A1C 08/08/2025 02/06/2025, 02/0 11/2024, 05/10/2024, Additional history exists Foot Exam 09/19/2025 09/19/2024 Breast Cancer Screening-Mammogram 11/16/2025 11/16/2024, 11/16/2024, 11/15/2023, Additional history exists Lipid Panel 02/06/2026 02/06/2025, 05/2 10/2023, 11/10/2023, Additional history exists DTaP/Tdap/Td Vaccine (2 - Td or Tdap) 11/07/2033 11/08/2023 Zoster Vaccine Completed 01/15/2020, 08/2019, 10/26/2019 Procedures Procedure Name Priority Date/Time Associated Diagnosis [...] POCT hemoglobin A1c (02/06/2025 1:07 PM CDT) Hemoglobin A1C, POC 6.0(A) 4.0 - 5.6 % Capillary blood 02/06/2025 1 :07 PM CDT Diana WHITAKER POINT OF CARE TEST ORDBrunilda CALHOUN Final Result * POCT lipid panel (02/06/2025 1:07 PM CDT) Cholesterol, POC 116 <200 MG/DL HDL, POC 49 >=40 mg/dL Triglycerides, POC 110 <=149 mg/dL LDL Cholesterol POC 45 <=129 mg/dL Chol/HDL Ratio, POC 2.4 NONE Non-HDL Cholesterol, POC 67 NONE mg/dL Cholesterol Total, POC 116 30 - 199 mg/dL Capillary blood 02/06/2025 1 :07 PM CDT Result [facility] Diana WHITAKER POINT OF CARE TEST ORDE RABLES Final Result * POCT glucose (02/06/2025 1:07 PM CDT) Glucose Blood, POC 73 Normal Fasting 70 - 100, Random <200 mg/dL Comment:PPG 2 Hrs Blood 02/06/2025 1:07 PM CDT Result [facility] Diana WHITAKER POINT OF CARE TEST ORDE RABLES Final Result * (ABNORMAL) HM ALBUMIN CREATININE RATIO, URINE (03/29/2024 5:44 PM CDT) SCRIBED HM ALBUMIN CREATININE RATIO, URINE 13(A) 40 - 180 EXTERNAL LAB Result [facility] Historical Provider HEALTH MAINTENANCE Edited Result - Final Performing Organization Address City/State/[facility] Co de Phone Number EXTERNAL LAB * HM CREATININE (03/29/2024 5:44 PM CDT) SCRIBED Creatinine 0.68 0.60 - 1.10 mg/dl EXTERNAL LAB SCRIBED eGFR in >90 >90 EXTERNAL LAB SCRIBED eGFR in NonAfrican English >90 >90 EXTERNAL LAB Historical Provider HEALTH MAINTENANCE Edited Result - Final EXTERNAL LAB from Last 3 Months or Most Recently Relevant to Health Maintenance [place] [address] [employer] Advance Directives For more information, please contact: [phone] * Full Code (Latest Code Status on File) Date Activated Date Inactivated Comments 05/09/2018 11:44 PM 05/10/2018 8:01 PM Care Teams Interventional Radiology Rn Relationship Specialty Start Date End Date Renetta Duncan MD [address] [place] [address] PCP - General Internal Medicine 10/07/21 Shin Clifton MD [address] [place] [address] [place] [address] Consulting Physician Cardiology 05/10/18
--- OUTSIDE RECORDS SUMMARY | 2025-02-22 23:28 | XMS_ITS | Data Portability ---
Author Organization [place] - [place] [employer], Main Office Address [address] [place] [address] Assessment Encounter Date Assessment Date Assessment LastModified by Organization Details LastModified Time 04/08/2023 04/08/2023 Patient presents wrist pain left. She has disc happened after a fall. She does not have a fracture based on her x-rays does have some partial tearing of the scapholunate ligament as well as triangle fibrocartilage based on the MRI she brings. Interestingly she is not tender neither area she is more tender radially has a mildly positive Megan's test and pain with manipulation. I injected with 10 mg of Kenalog 2 cc 1% lidocaine. She will try a brace for pain and inflammation. I will see her back on in a month. Treatment is made particularly more difficult by the fact of her morbid obesity she has a BMI of 44+ as well as the fact that she is on Eliquis so I can give her anti-inflammator y medication and she reacts poorly to prednisone. naveed Not available 04/08/2023 09:57:54 Plan of Treatment Reminders Order Date Submit Date Provider Last Modified By Organization Details Last Modified Time Details Appointments None recorded. Lab None recorded. Referral None recorded. Procedures injection/a spiration joint/bursa (PROC) - in office procedure, administere d by provider 2022 023 [email or web address] In-Office Order, Internal Use Only DO Not Attach Compendium DO Not Attach Compendium, Do Not Delete/merge, [id number] 09:53:52 Surgeries None recorded. Imaging None recorded. Medication Orders Kenalog 10 mg/mL suspension for injection 2022 023 maisha 158 [facility]/Pharmacy #[id number], [address], [place], [address], 3 09:54:59 ropivacaine (PF) 5 mg/mL (0.5 %) injection solution 2022 Nika ferrera 158 [facility]/Pharmacy #[id number], [address], [place], [address], 3 09:54:59 Patient TargetsNo targets recorded. Patient InstructionsNo instructions recorded. Reason for Referral None Reported. Results Created Date Observation Date Name Description Value Unit Range Abnormal Flag Note LastModifiedBy Organization Detail LastModifiedTime 11/05/19 22 10/10/2021 XR, lumba r spine , 2 view No observ ation record ed. [id number] Not Available 10/15/2022 00:32:47 11/05/19 22 10/10/2021 XR, hip, unila teral , 2 or 3 view No observ ation record ed. [id number] Not Available 10/15/2022 00:32:47 11/05/19 22 10/10/2021 MRI, lumba r spine , w/o contr ast No observ ation record ed. [id number] Not Available 10/15/2022 00:32:47 04/08/20 23 03/29/2023 MRI, wrist , w/o contr ast No observ ation record ed. [email or web address] Not Available 2022 14:00:31 04/08/20 23 03/18/2023 XR, wrist + hand No observ ation record ed. [email or web address] Not Available 2022 14:01:22 04/08/20 23 03/18/2023 XR, wrist + hand No observ ation record ed. [email or web address] Not Available 2022 14:02:12 Result Notes None recorded. Problems Name Problem SNOMED Code Status Onset Date Resolution Date Notes Provider Name and Address Organization Details Recorded Time Pain in right sacroiliac joint 2916548830914 9107 Active 2021 Not Available [facility] 00:29:50 Lumbar radiculopa thy 531446136 Active 2021 Not Available [facility] 3 00:29:50 Lumbar spondylosi s 428446951 Active 2021 Not Available [facility] 3 00:29:50 Low back pain 602399051 Active 2021 Not Available [facility] 3 00:29:51 Pain of right hip joint 2207862465505 02 Active 2021 Not Available [facility] 3 00:29:51 Pain of left wrist 7387939924428 02 Active 2022 Renetta patel, [facility] 3 09:40:20 Tenosynovi tis of left radial styloid 4076694992336 9104 Active 2022 Chriss Mcnally MD [address] [facility], [place] [address], [place], [address] , [employer] [facility] 3 09:58:07 Morbid obesity 215195502 Active 2022 Chriss Mcnally MD [address] [facility], [place] [address], [place], [address] , [employer] 3 09:58:12 Problem Notes None recorded. Procedures Surgical History Date Name Laterality Status Provider Name and Address Organization Details Recorded Time 04/08/20 23 Ortho - Cortisone Injection completed Chriss Mcnally MD [address] [facility], [place] [address], [place], [address], [employer] [facility] 04/08/2023 09:56:24 08/16/19 12 arthroplasty of knee completed Renetta Tomlinson OR [employer] [facility] [id number] [facility] 04/08/2023 09:39:21 Imaging Results None recorded. Procedure Notes None recorded. Medical Equipment None Reported. Allergies No known drug allergies Medications Name Sig Start Date Stop Date Status Note LastModified by Organization Details LastModified Time losartan 50 mg tablet active Not Available Not Available No t Available amoxicillin 500 mg capsule TAKE 4 CAPSULES BY MOUTH 1 HOUR PRIOR TO APPT 04/08 completed Not Available Not Available Not Available furosemide 40 mg tablet active Not Available Not Available Not Available pioglitazon e 15 mg tablet 04/08 completed Not Available Not Available Not Available prednisone 10 mg tablet TAKE 1 TAB 3 TIMES A DAY X3 DAYS, 1 TAB TWICE DAILY X2 DAYS, THEN 1 TAB ONCE DAILY X1 DAY active Not Available Not Available No t Available bupivacaine HCl 0.5 % (5 mg/mL) injection solution Take 20 mg by injection route. 04/08 completed Not Available Not Available Not Available sulfamethox azole 800 mg-trimetho prim 160 mg tablet TAKE 1 TABLET BY MOUTH EVERY 12 HOURS 04/08 completed Not Available Not Available Not Available simvastatin 40 mg tablet Take 1 tablet every day by oral route. active Not Available Not Available No t Available prednisone 10 mg tablets in a dose pack Take 1 tab by mouth, 3 times a day for 3 daysTake 1 tab by mouth 2 times a day for 2 daysTake 1 tab by mouth once a day for 1 day 2022 active Not Available Not Available Not Avai lable OneTouch Ultra Test strips USE TO TEST 3 TIMES DAILY active Not Available Not Available No t Available Kenalog 10 mg/mL suspension for injection Take 10 mg by injection route. 2022 active [facility]: 0003- 0494- 20 Not Available Not Available Not Available glipizide ER 2.5 mg tablet, extended release 24 hr active Not Available Not Available Not Available metformin 1,000 mg tablet active Not Available Not Available Not Available metoprolol succinate ER 25 mg tablet,exte nded release 24 hr active Not Available Not Available Not Available BD Ultra-Fine Mini Pen Needle 31 gauge x 3/16 USE ONCE DAILY 04/08 completed Not Available Not Available Not Available furosemide 04/08 completed Not Available Not Available Not Available Vitamin D 04/08 completed Not Available Not Available Not Available metformin 04/08 completed Not Available Not Available Not Available ropivacaine (PF) 5 mg/mL (0.5 %) injection solution Take 10 mg by injection route. 2022 active [facility] [phone] -064- 01 Not Available Not Available Not Available Eliquis 5 mg tablet active Not Available Not Available No t Available Eliquis 04/08 completed Not Available Not Available Not Available Basaglar KhushiikPen U-100 Insulin 100 unit/mL (3 mL) subcutaneou s active Not Available Not Available Not Available OneTouch Delica Plus Lancet 33 gauge USE TO TEST 3 TIMES DAILY 04/08 completed Not Available Not Available Not Available Ozempic 0.25 mg or 0.5 mg (2 mg/3 mL) subcutaneou s pen injector INJECT 0.5 MG UNDER THE SKIN ONCE EVERY 7 DAYS ON THE SAME DAY EACH WEEK 04/08 completed Not Available Not Available Not Available Vitals Date Recorded Body mass index (BMI) Body height Body weight Provider Name and Address Organization Details Last Updated DateTime 11/04/2021 43.8 kg/m2 162.56 cm 770631.05 g Not Available [facility] 10/15/2022 00:29:09 Date Recorded Body mass index (BMI) Body height Body weight Provider Name and Address Organization Details Last Updated DateTime 12/16/2021 44.6 kg/m2 162.56 cm 861546.02 g Not Available [facility] 10/15/2022 00:29:10 Date Recorded Body mass index (BMI) Body height Body weight Provider Name and Address Organization Details Last Updated DateTime 02/11/2022 45.5 kg/m2 162.56 cm 930217.98 g Not Available [facility] 10/15/2022 00:29:10 Date Recorded Body mass index (BMI) Body height Body weight Provider Name and Address Organization Details Last Updated DateTime 03/30/2022 45.5 kg/m2 162.56 cm 970771.98 g Not Available [facility] 10/15/2022 00:29:10 Date Recorded Body height Body mass index (BMI) Body weight Provider Name and Address Organization Details Last Updated DateTime 04/08/2023 162.56 cm 44.6 kg/m2 734634.02 g Renetta Tomlinson [employer] 04/08/2023 09:35:02 Social History Question Answer Notes LastModified by [employer] Details LastModified Time Tobacco Smoking Status Never Smoker Renetta patel [employer] 04/08/2023 09:38:57 What Was The Date Of Your Most Recent Tobacco Screening? 04/08/2023 [email or web address] Information not available 04/08/2023 Sex: Unknown Functional Status Question Answer Note LastModified by [employer] Details LastModified Time What is your level of alcohol consumption? None [id number] Information not available 10/15/2022 Mental Status None recorded. Family History Relationship Description Onset Age of this Age Resolved Age Notes LastModified by Organization Details LastModified Time Mother Family history of malignant neoplasm [id number] Not available 10/15/2022 00:27:17 Sister Family history of malignant neoplasm [id number] Not available 10/15/2022 00:27:17 Father Heart disease [id number] Not available 10/15/2022 00:27:17 Medical History Condition Response ARTHRITIS Y USE OF BLOOD THINNERS Y SKIN PROBLEMS Y DIABETES, TYPE Y HEART DISEASE/HEART PROBLEMS Y HYPERTENSION Y CANCER: SPECIFY Y Gynecological HistoryNo gynecological history recorded. Obstetrics History GPAL:G 0 P 0 0 0 0 Past Encounters Encounter ID Performer Location Encounter Start Date Encounter Closed Date Diagnosis/Indication Diagnosis SNOMED-CT Code Diagnosis ICD10 Code Diagnosis Note [id number] Chriss Mcnally MD [facility] [place] [address] [place] [address] 11/04/2021 00:00:00 11/04/2021 16:44:20 [id number] Chriss Mcnally MD [facility] [place] [address] [place] [address] 12/16/2021 00:00:00 12/16/2021 14:57:30 [id number] Chriss Mcnally MD [facility] [place] [address] [place] [address] 02/11/2022 00:00:00 02/11/2022 09:42:41 [id number] Chriss Mcnally MD [facility] [place] [address] [place] [address] 03/30/2022 00:00:00 03/30/2022 10:24:57 [id number] Chriss Mcnally MD [facility] [place] [address] [place] [address] 04/08/2023 09:15:25 04/08/2023 10:49:47 Pain of left wrist 3514834273 61611 M25.532 Tenosynovi tis of left radial styloid 6700401188 3323156 M65.4 Morbid obesity 748884853 E66.01 Health Concerns Section Related Observation LastModified by Organization Detai ls LastModified Time None Recorded Concern Status LastModified by Organization Details LastModified Time None Recorded Advance Directives Directive None Recorded Payers Insurance Date Sequence Insurance Name Policy Number Policy [place] Covered Member ID [place] Member ID Guarantor Name 04/05/2023 1 [place] Elma Lucas [id number] Elma Lucas 04/13/2023 2 [employer] (MEDICARE SUPPLEMENT) Elma Lucas [id number] Elma Lucas Notes Date Note Type Note Provider Name and Address Organization Details Recorded Time 04/08/2023 text/html Patient returns wrist pain left. She fell about a month ago and since that time has had pain she had x-rays taken even an MRI scan. No fractures were noted all over she does have some tearing of the ligaments. Chriss Mcnally MD [address] [place] [address], [facility] [address], [place], [address], [place] [employer] [facility] 04/08/2023 09:58:48 OBGyn Episode No OBEpisode recorded.
--- NOTE | 2025-02-22 23:32 | ECG_ITS ---
Test Date: 2025-02-22 23:34:21 Measurements Intervals [place] Rate: 102 P: 49 WI: 168 QRS: -7 QRSD: 89 T: 47 QT: 324 QTc: 422 Interpretive Statements SINUS TACHYCARDIA WITH OCCASIONAL SUPRAVENTRICULAR PREMATURE COMPLEXES POSSIBLE INFERIOR MYOCARDIAL INFARCTION , PROBABLY OLD Electronically Signed On 02-23-2025 11:05:34 CDT by Fede Maciel D.O
[2025-02-22 23:58] LABS: Alanine Aminotransferase 21 U/L (6-35); Albumin Level 4.1 g/dL (3.5-5.1); Alkaline Phosphatase 118 U/L (38-126); Anion Gap 7 mmol/L (4-12); Aspartate Amino Transferase 27 U/L (14-36); Bilirubin,Total 0.4 mg/dL (0.2-1.3); Blood Urea Nitrogen 22 mg/dL (7-17); Calcium 9.2 mg/dL (8.4-10.2); Carbon Dioxide 28 mmol/L (22-30); Chloride 101 mmol/L (98-107); Estimated CRCL calculation 59 ml/min; Estimated Glomerular Filt Rate 55; Glucose 203 mg/dL (65-110); Lipase 38 U/L (23-300); Potassium 3.4 mmol/L (3.4-5.0); Sodium 136 mmol/L (137-145); Total Protein 7.2 g/dL (6.3-8.2)
[2025-02-23] LABS: INR 1.1; Partial Thromboplastin Time 31.0 Seconds (22.3-36.8); Prothrombin Time 13.9 Seconds (11.1-14.7)
[2025-02-23 00:01] LABS: Hematocrit 37.3 % (37.0-47.0); Hemoglobin 12.0 g/dL (12.0-15.0); Immature Granulocyte Percent A 1.1 % (0-0.5); Lymphocytes Absolute Auto 2.72 K/mm3 (0.9-3.2); Mean Corpuscular HGB Conc 32.2 g/dl (32-36); Mean Corpuscular Hemoglobin 30.9 pg (26-34); Mean Corpuscular Volume 96.1 fl (80-100); Nucleated Red Blood Cells Absolute Auto 0.000 K/mm3 (0.0-0.012); Nucleated Red Blood Cells Perc 0.0 % (0.0-0.2); Platelet Count Result 232 k/mm3 (150-375); Red Blood Count 3.88 M/mm3 (4.2-5.4); White Blood Count 13.1 K/mm3 (4.5-10.0)
[2025-02-23 00:10] LABS: Troponin I 0.016 ng/mL (0.000-0.034)
[2025-02-23 01:20] VITALS: BP 156/77; PULSE 87; RESP 16; TEMP 36.6; O2SAT 100
[2025-02-23 01:30] VITALS: O2SAT 99
--- NOTE | 2025-02-23 02:17 | ED_ITS ---
HPI - Chest Pain General Chief Complaint: Chest Pain Stated Complaint: chest and back pain Time Seen by Provider: 02/23/25 01:36 History of Present Illness HPI narrative: Patient is a 69-year-old female who presents emergency department this evening complaining of chest pain that started around 7:00 p.m. after she had supper and lasted only a few seconds. Describes it as just some pressure on her chest, denies any sharp stabbing chest pain. Cardiac history only significant of atrial fibrillation, denies any history of coronary artery disease or previous heart attacks. She states that she is currently on an antibiotic for urinary tract infection. Denies any recent illness, fevers or chills, shortness of breath. No additional symptoms or concerns at this time. Related Data Home Medications ?Medication ?Instructions ?Recorded ?Confirmed ?Last Taken ?Type apixaban 5 mg tablet (Eliquis) 5 mg PO BID 07/07/19 07/07/19 Unknown History furosemide 40 mg tablet 07/10/21 Unknown History insulin glargine 100 unit/mL (3 subcut 07/10/21 Unknown History mL) subcutaneous pen (Basaglar KwikPen U-100 Insulin) losartan 50 mg tablet 07/10/21 Unknown History metformin 1,000 mg tablet mg BID 07/10/21 Unknown History metoprolol succinate 25 mg PO 07/10/21 Unknown History tablet,extended release 24 hr simvastatin 40 mg tablet mg 07/10/21 Unknown History Allergies Allergy/AdvReac Type Severity Reaction Status Date / Time No Known Allergies Allergy Verified 02/22/25 23:26 Review of Systems 2 Review of Systems: All systems are reviewed and are negative unless stated otherwise in the HPI. [facility] Past Medical History Medical History (Updated 02/23/25 @ 03:19 by Walter Wilkes MD) A-fib HLD (hyperlipidemia) HTN (hypertension) Diabetes Surgical History Surgical History History of knee replacement bilateral knees Social History Social History Gender identity (if verbalized by the patient): Female Exam 2 Narrative: General: Alert, awake, afebrile, in no acute distress. HEENT: PERRL, no rhinorrhea, no post nasal drip, oropharynx clear. Neck: Trachea midline, no JVD, no lymphadenopathy. Cardiovascular: Regular rate and rhythm, no murmurs, rubs or gallops, no peripheral edema. Respiratory: Clear to auscultation bilaterally, no tachypnea, no wheezing, no rhonchi, no rubs, no respiratory distress. Abdomen: Soft, nontender, nondistended, no rebound, no guarding, no peritoneal signs. Musculoskeletal: No joint swelling or deformity, normal muscle tone. Skin: No rashes or petechia, no signs of infection. Psychiatric: Alert and oriented, normal behavior and judgment for situation. Neurological: Alert and oriented to person, place, and time. Follows all commands. No focal deficits, speech is clear and fluent. Course Vital Signs Vital signs: Vital Signs Temperature 98.9 F 02/22/25 23:28 Pulse Rate 104 H 02/22/25 23:28 Respiratory Rate 18 02/22/25 23:28 Blood Pressure 153/88 H 02/22/25 23:28 Pulse Oximetry 99 02/22/25 23:28 Oxygen Delivery Room Air 02/22/25 23:28 Temperature 97.9 F 02/23/25 01:20 Pulse Rate 87 02/23/25 01:20 Respiratory Rate 16 02/23/25 01:20 Blood Pressure 156/77 H 02/23/25 01:20 Pulse Oximetry 100 02/23/25 01:20 Oxygen Delivery Room Air 02/23/25 01:20 MDM - Chest Pain MDM Narrative Medical decision making narrative: The patient was evaluated by myself in the emergency department. History is obtained from patient who is an independent historian and physical exam was performed. External medical records were reviewed at this time. IV was established and pertinent tests were ordered. EKG was obtained which revealed sinus tachycardia rate of 102 beats per minute, no evidence of acute ischemia. EKG was independently interpreted by me and is currently pending official cardiology read. Laboratory results obtained revealing no acute process. Two sets of troponins were obtained and both noted to be negative. Imaging studies obtained included CXR which was independently interpreted by me revealing no acute cardiopulmonary process, which is pending final radiology interpretation. Differential diagnosis considerations include acute coronary syndrome, infectious process such as pneumonia, acute stress reaction, acute viral syndrome, dehydration, electrolyte derangements. Comorbidities impacting this visit include none. I have evaluated and discussed social determinants of health with the patient that could potentially impact subsequent diagnosis and treatment plans. On repeat assessment of the patient, reevaluation revealed that the patient is doing well and is in no acute distress. Patient symptoms have improved since she arrived to our emergency department. Repeat vital signs were all reviewed and noted to be stable. Differential diagnosis and treatment plan were discussed with the patient at bedside. Patient agrees with discussion and after shared medical decision making agrees with discharge. All questions were answered to the patient's satisfaction. Patient will follow up with her adapted physical education specialist in 3-5 days. Patient was provided with strict return precautions and instructed to return to the emergency department if any new or worsening symptoms develop. The patient was discharged in stable condition. Lab Data 02/22/25 23:40 02/22/25 23:40 Labs: Lab Results 02/22/25 02/23/25 Range/Units 23:40 02:33 WBC 13.1 H (4.5-10.0) K/mm3 RBC 3.88 L (4.2-5.4) M/mm3 Hgb 12.0 (12.0-15.0) g/dL Hct 37.3 (37.0-47.0) % MCV 96.1 (80-100) fl MCH 30.9 (26-34) pg MCHC 32.2 (32-36) g/dl RDW 12.6 (11.5-14.5) % Plt Count 232 D (150-375) k/mm3 MPV 10.2 (7.4-10.4) fl Immature Gran % (Auto) 1.1 H (0-0.5) % Neut % (Auto) 66.6 (45.5-73.1) % Lymph % (Auto) 20.7 (18.3-44.2) % Ness % (Auto) 10.7 H (2.6-8.5) % Eos % (Auto) 0.6 (0-4.4) % Baso % (Auto) 0.3 (0.2-1.2) % Lymph # (Auto) 2.72 (0.9-3.2) K/mm3 Ness # (Auto) 1.4 H (0.1-0.6) K/mm3 Eos # (Auto) 0.1 (0-0.3) K/mm3 Baso # (Auto) 0.0 (0.0-0.1) K/mm3 Abs Immat Gran (auto) 0.14 H (0.00-0.031) K/mm3 Absolute Neuts (auto) 8.8 H (1.3-6.7) K/mm3 Absolute Nucleated RBC 0.000 (0.0-0.012) K/mm3 Nucleated RBC % 0.0 (0.0-0.2) % PT 13.9 (11.1-14.7) Seconds INR 1.1 APTT 31.0 (22.3-36.8) Seconds Sodium 136 L (137-145) mmol/L Potassium 3.4 (3.4-5.0) mmol/L Chloride 101 (98-107) mmol/L Carbon Dioxide 28 (22-30) mmol/L Anion Gap 7 (4-12) mmol/L BUN 22 H (7-17) mg/dL Creatinine 0.99 (0.7-1.0) mg/dL Estim Creat Clear Calc 59 ml/min Estimated GFR 55 L (59 - ) Glucose 203 H (65-110) mg/dL Calcium 9.2 (8.4-10.2) mg/dL Total Bilirubin 0.4 (0.2-1.3) mg/dL AST 27 (14-36) U/L ALT 21 (6-35) U/L Alkaline Phosphatase 118 (38-126) U/L Troponin I 0.016 0.015 (0.000-0.034) ng/mL Total Protein 7.2 (6.3-8.2) g/dL Albumin 4.1 (3.5-5.1) g/dL Lipase 38 (23-300) U/L Discharge Plan Discharge Clinical Impression: Chest pain Patient Disposition: Home Condition: Improved Instructions: Antibiotic Form, Chest Pain (ED) Additional Instructions: Please follow-up with your adapted physical education specialist within the next 3-5 days. Return to emergency department if any new or worsening symptoms develop. Patient Language: Hong Konger Prescriptions: No Action Eliquis 5 mg Tablet 5 mg PO BID losartan 50 mg tablet furosemide 40 mg tablet simvastatin 40 mg tablet metformin 1,000 mg tablet BID metoprolol succinate 25 mg tablet extended release 24 hr PO Brandonaglbryanna Curran U-100 Insulin 100 unit/mL (3 mL) insulin pen SUBCUT cephalexin 500 mg capsule 500 mg PO Q8H 10 Days Qty: 30 0RF Follow-up/Referrals: Shin Clifton MD [Physician] - 3 Days PHYSICIAN NOT ON STAFF,NONSTAFF [Non-Staff] - Time of Disposition: 03:19
--- OUTSIDE RECORDS SUMMARY | 2025-02-23 02:19 | XMS_ITS | Clinical Summary ---
Author Organization [facility] [employer] Address [address] [place] [address] Care Team Providers Care Gas Meter Prover Name Role Phone Fly Mcnally MD Primary Care Provider [phone] Albino Garcia MD Unavailable [phone] Source Comments [facility],non-owned Affiliates and Associated Physician Practices is amultiple site organization consisting of ambulatory clinics and hospital sitesin [place] and [place]. This disclosure is being madepursuant to the Care Everywhere program and may not contain all information available regarding this patient. 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 Gender Identity Female 06/12/2021 9:22 AM CDT [...] to complete this topic Insurance MEDICARE [facility] [place] Advance Directives Documents on File Type Date Recorded Patient Roller Setter Expl anation Adv Directive/Living Will/POA 10/04/2010 10:41 AM * FULL RESUSCITATION (Latest Code Status on File) Date Activated Date Inactivated Comments 03/31/2011 10:08 AM 04/04/2011 12:03 AM * Full Code Date Activated Date Inactivated Comments 09/30/2010 11:59 AM 10/04/2010 12:10 AM Care Teams Gas Meter Prover Relationship Specialty Start Date End Date Fly Mcnally MD [address] [facility] [address] [place] [address] PCP - General 09/09/10 [place] [address] [facility] [place] [address] Physical Medicine and Rehabilitation 06/12/21
--- OUTSIDE RECORDS SUMMARY | 2025-02-23 02:19 | XMS_ITS | Clinical Summary ---
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
--- OUTSIDE RECORDS SUMMARY | 2025-02-23 02:19 | XMS_ITS | Referral Summary ---
Author Organization [facility] [address] Address [address] [place] [address] Care Team Providers Care Machine Specialist Name Role Phone Shin Clifton MD Unavailable [phone] Renetta Duncan MD Primary Care Provid er Encounters Date Type Department Care Team Description 02/06/2025 1:00 PM CDT Office Visit [facility] [address] [address] Diana Mckenzie PA Type 2 [...] injection Inject 38 Units under the skin forensic engineer before breakfast 45 mL 3 024 Active [...] , with long-term current use of insulin ([facility]) Take 1 tablet (1,000 mg total) by mouth 2 (two) times a day with meals 180 tablet 3 Active Dexcom G7 Sensor deviceIndicat ions:Type 2 diabetes mellitus with hyperglycemia , with long-term current use of insulin ([facility]) Change sensor every 10 days Dx: E11.65 3 each 024 Active OneTouch Delica Plus Lancet 33 gauge miscIndicatio ns:Type 2 diabetes mellitus with hyperglycemia , with long-term current use of insulin ([facility]) TEST BLOOD SUGAR 3 TIMES A DAY Dx: E11.65 100 each 025 Active blood glucose diagnostic (OneTouch Ultra Blue Test Strip) stripIndicati ons:Type 2 diabetes mellitus with hyperglycemia , with long-term current use of insulin ([facility]) TEST BLOOD SUGAR 3 TIMES A DAY. [...] changes. Assessment & Plan (09/19/2024 1:19 PM DIRECTOR OF PARKS AND RECREATION): Chronic problem. On statin therapy, no changes. [...] meals. Assessment & Plan (09/19/2024 3:49 PM DIRECTOR OF PARKS AND RECREATION): Chronic problem, improving but not at goal [...] changes. Assessment & Plan (09/19/2024 1:18 PM DIRECTOR OF PARKS AND RECREATION): Chronic problem, Controlled on losartan, furosemide, metoprolol. [...] on file Legal Sex Female 3:47 PM DIRECTOR OF PARKS AND RECREATION Gender Identity Female 10/30/2020 10:21 AM CDT Sexual Orientation Straight 05/10/2024 11 :00 AM CDT Last Filed Vital Signs Vital Sign Reading Time Taken Comments Blood Pressure 116/64 02/06/2025 1:04 PM CDT Pulse 85 02/06/2025 1:04 PM CDT Temperature 36.6 C (97.9 F) 05/10/2018 8:19 AM CDT Respiratory Rate 16 02/06/2025 1:04 PM CDT Oxygen Saturation 98% 08/24/2024 8:15 AM DIRECTOR OF PARKS AND RECREATION Inhaled Oxygen Concentration - - Weight 117.9 [...] POCT hemoglobin A1c (02/06/2025 1:07 PM CDT) [facility] Hemoglobin A1C, POC 6.0(A) 4.0 - 5.6 % Capillary blood 02/06/2025 1 :07 PM CDT us Diana WHITAKER POINT OF CARE TEST AARON CALHOUN Final Result * POCT lipid panel (02/06/2025 1:07 PM CDT) [facility] Cholesterol, POC 116 <200 MG/DL HDL, POC 49 >=40 mg/dL Triglycerides, POC 110 <=149 mg/dL LDL Cholesterol POC 45 <=129 mg/dL Chol/HDL Ratio, POC 2.4 NONE Non-HDL Cholesterol, POC 67 NONE mg/dL Cholesterol Total, POC 116 30 - 199 mg/dL Capillary blood 02/06/2025 1 :07 PM CDT Result [facility] Diana WHITAKER POINT OF CARE TEST ORDE RABLES Final Result * POCT glucose (02/06/2025 1:07 PM CDT) Glucose Blood, POC 73 Normal Fasting 70 - 100, Random <200 mg/dL Comment:PPG 2 Hrs Blood 02/06/2025 1:07 PM CDT Result [facility] Diana WHITAKER POINT OF CARE TEST ORDE RABLES Final Result * (ABNORMAL) HM ALBUMIN CREATININE RATIO, URINE (03/29/2024 5:44 PM CDT) SCRIBED HM ALBUMIN CREATININE RATIO, URINE 13(A) 40 - 180 EXTERNAL LAB Result [facility] Historical Provider HEALTH MAINTENANCE Edited Result - Final Performing Organization Address City/[facility]/ZIP Co de Phone Number EXTERNAL LAB * HM CREATININE (03/29/2024 5:44 PM CDT) SCRIBED Creatinine 0.68 0.60 - 1.10 mg/dl EXTERNAL LAB SCRIBED eGFR in >90 >90 EXTERNAL LAB SCRIBED eGFR in NonAfrican Fijian >90 >90 EXTERNAL LAB Result [facility] Historical Provider HEALTH MAINTENANCE Edited Result - Final EXTERNAL LAB from Last 3 Months or Most Recently Relevant to Health Maintenance Insurance [employer] Advance Directives For more information, please contact: [phone] * Full Code (Latest Code Status on File) Date Activated Date Inactivated Comments 05/09/2018 11:44 PM 05/10/2018 8:01 PM Care Teams Machine Specialist Relationship Specialty Start Date End Date Renetta Duncan MD [address] [place] [address] PCP - General Internal Medicine 10/07/21 Shin Clifton MD [address] [place] [address] Consulting Physician Cardiology 05/10/18
--- OUTSIDE RECORDS SUMMARY | 2025-02-23 02:19 | XMS_ITS | Clinical Summary ---
Author Organization [facility] [address] Address [address] [place] [address] Care Team Providers Care Lead Software Engineer Name Role Phone Shin Clifton MD Unavailable [phone] Renetta Duncan MD Primary Care Provid er [...] gauge x /16 needle daily 021 Active NanoflexTouch Ultra2 Meter mis TEST BLOOD SUGAR 3 TIMES A DAY Active apixaban (Eliquis) 5 mg tabletIndicat ions:Atrial fibrillation, currently in sinus rhythm Take 1 tablet (5 mg total) by mouth 2 (two) times a day 180 tablet 3 Active BASAGLAR 100 unit/mL (3 mL) pen for injection Inject 38 Units under the skin customer training specialist before breakfast 45 mL Active insulin aspart [...] , with long-term current use of insulin ([facility]) Change sensor every 10 days Dx: E11.65 3 each Active OneTouch Delica Plus Lancet 33 gauge miscIndicatio ns:Type 2 diabetes mellitus with hyperglycemia , with long-term current use of insulin ([facility]) TEST BLOOD SUGAR 3 TIMES A DAY Dx: E11.65 100 each 025 Active blood glucose diagnostic (OneTouch Ultra Blue Test Strip) stripIndicati ons:Type 2 diabetes mellitus with hyperglycemia , with long-term current use of insulin ([facility]) TEST BLOOD SUGAR 3 TIMES [...] changes. Assessment & Plan (09/19/2024 1:19 PM PHOTOGRAPHIC PROCESS ATTENDANT): Chronic problem. On statin therapy, no changes. [...] meals. Assessment & Plan (09/19/2024 3:49 PM PHOTOGRAPHIC PROCESS ATTENDANT): Chronic problem, improving but not at goal [...] changes. Assessment & Plan (09/19/2024 1:18 PM PHOTOGRAPHIC PROCESS ATTENDANT): Chronic problem, Controlled on losartan, furosemide, metoprolol. [...] PM CDT Office Visit [facility] of [address] [address] Diana Mckenzie PA Type 2 [...] on file Legal Sex Female 3:47 PM PHOTOGRAPHIC PROCESS ATTENDANT Gender Identity Female 10/30/2020 10:21 AM CDT Sexual Orientation Straight 05/10/2024 11 :00 AM CDT Obstetrics History Last Filed Vital Signs Vital Sign Reading Time Taken Comments Blood Pressure 116/64 02/06/2025 1:04 PM CDT Pulse 85 02/06/2025 1:04 PM CDT Temperature 36.6 C (97.9 F) 05/10/2018 8:19 AM CDT Respiratory Rate 16 02/06/2025 1:04 PM CDT Oxygen Saturation 98% 08/24/2024 8:15 AM PHOTOGRAPHIC PROCESS ATTENDANT Inhaled Oxygen Concentration - - Weight 117.9 [...] blood 02/06/2025 1 :07 PM CDT Result [facility] Diana WHITAKER POINT OF CARE TEST ORDE RABLES Final Result * POCT glucose (02/06/2025 1:07 PM CDT) Glucose Blood, POC 73 Normal Fasting 70 - 100, Random <200 mg/dL Comment:PPG 2 Hrs Blood 02/06/2025 1:07 PM CDT Result [facility] Diana WHITAKER POINT OF CARE TEST ORDE RABLES Final Result * (ABNORMAL) HM ALBUMIN CREATININE RATIO, URINE (03/29/2024 5:44 PM CDT) SCRIBED HM ALBUMIN CREATININE RATIO, URINE 13(A) 40 - 180 EXTERNAL LAB Result [facility] Historical Provider HEALTH MAINTENANCE Edited Result - Final Performing Organization Address City/State/[facility] Co de Phone Number EXTERNAL LAB * HM CREATININE (03/29/2024 5:44 PM CDT) SCRIBED Creatinine 0.68 0.60 - 1.10 mg/dl EXTERNAL LAB SCRIBED eGFR in >90 >90 EXTERNAL LAB SCRIBED eGFR in NonAfrican Serbian >90 >90 EXTERNAL LAB Historical Provider HEALTH MAINTENANCE Edited Result - Final EXTERNAL LAB from Last 3 Months or Most Recently Relevant to Health Maintenance Insurance [employer] [place] Advance Directives For more information, please contact: [phone] * Full Code (Latest Code Status on File) Date Activated Date Inactivated Comments 05/09/2018 11:44 PM 05/10/2018 8:01 PM Care Teams Lead Software Engineer Relationship Specialty Start Date End Date Renetta Duncan MD [address] [place] [address] PCP - General Internal Medicine 10/07/21 Shin Clifton MD [address] [address] Consulting Physician Cardiology 05/10/18
--- OUTSIDE RECORDS SUMMARY | 2025-02-23 02:19 | XMS_ITS | Encounter Summary ---
Author Organization [facility] Address [address] [place] [address] Care Team Providers Care Freight Flow Sales Leader Name Role Phone Fly Mcnally DO Primary Care Provider Fly Mcnally MD Primary Care Provider Shin Clifton MD Unavailable [phone] Renetta Duncan MD Primary Care Provid er Encounter Details Date Type Department Care Team (Late st Contact Info) Description 04/16/2016 Orders Only [facility] ProviderMarco A MD [address] [place] [id number] Social History Tobacco Use Types Packs/Day Years Used Date Smoking Tobacco: Never Assessed Comments Unknown Sex and Gender Information Value Date Recorded Sex Assigned at Not on file Legal Sex Female 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 Gender Identity Female 10/30/2020 10:21 AM [...] on filedocumented in this encounter Care Teams Freight Flow Sales Leader Relationship Specialty Start Date End Date Fly Mcnally DO [address] [place] [address] PCP - General 09/18/10 11/28/17 Fly Mcnally MD [address] [place] [address] PCP - General Internal Medicine 11/29/17 10/06/21 Renetta Duncan MD [address] [place] [address] PCP - General Internal Medicine 10/07/21 Shin Clifton MD [address] [facility] [address] [place] [address] Consulting Physician Cardiology 05/10/18 documented as of this encounter
--- NOTE | 2025-02-23 02:35 | ECG_ITS ---
Test Date: 2025-02-23 02:40:46 Measurements Intervals [place] Rate: 79 P: 51 DC: 209 QRS: 2 QRSD: 89 T: 50 QT: 351 QTc: 403 Interpretive Statements SINUS RHYTHM No previous ECG available for comparison Electronically Signed On 02-23-2025 07:07:28 CDT by Daniela Prieto M.D.
[2025-02-23 03:09] LABS: Troponin I 0.015 ng/mL (0.000-0.034)
[2025-02-23 03:26] VITALS: BP 151/74; PULSE 86; RESP 16; TEMP 36.6; O2SAT 97
== END 2025-02-23 03:29 | disposition home or self-care (01) ==
PROVIDERS: Emergency Provider Emergency Medicine
DX: R07.9 Chest pain, unspecified (principal); N39.0 Urinary tract infection, site not specified; I48.91 Unspecified atrial fibrillation; I10 Essential (primary) hypertension; E78.5 Hyperlipidemia, unspecified; E11.9 Type 2 diabetes mellitus without complications; Z79.01 Long term (current) use of anticoagulants; Z79.4 Long term (current) use of insulin; Z79.899 Other long term (current) drug therapy; R00.0 Tachycardia, unspecified; I49.1 Atrial premature depolarization; R94.31 Abnormal electrocardiogram [ECG] [EKG]
CPT/HCPCS: 36415; 71046; 80053; 83690; 84484; 85025; 85610; 85730; 93005; 99284

== ENCOUNTER 2025-04-09 01:08 | Day surgery (SDC) | payer MEDICARE, OTHER, SELFPAY ==
[2025-04-09] VITALS (14 sets, daily range): BP systolic 96–147; BP diastolic 62–81; PULSE 65–83; RESP 14–20; TEMP 36.6; O2SAT 93–100; BMI 48.8
[2025-04-09 07:30] LABS: Hematocrit 37.1 % (37.0-47.0); Hemoglobin 12.0 g/dL (12.0-15.0); Immature Granulocyte Percent A 0.3 % (0-0.5); Lymphocytes Absolute Auto 2.74 K/mm3 (0.9-3.2); Mean Corpuscular HGB Conc 32.3 g/dl (32-36); Mean Corpuscular Hemoglobin 31.1 pg (26-34); Mean Corpuscular Volume 96.1 fl (80-100); Nucleated Red Blood Cells Absolute Auto 0.000 K/mm3 (0.0-0.012); Nucleated Red Blood Cells Perc 0.0 % (0.0-0.2); Platelet Count Result 248 k/mm3 (150-375); Red Blood Count 3.86 M/mm3 (4.2-5.4); White Blood Count 8.8 K/mm3 (4.5-10.0)
--- NOTE | 2025-04-09 08:29 | WPDHPUPDATE1 ---
History and Physical Update Update Date/Time: 04/09/25 08:29 History and Physical has been reviewed, including an updated exam of the patient. There are NO changes in the patient's condition. Risks, benefits, and alternatives have been discussed and questions answered. Patient agrees to proceed with procedure.
--- NOTE | 2025-04-09 08:29 | WPDMODSED ---
Moderate Sedation Note-Pt Data Patient Data Allergies Allergy/AdvReac Type Severity Reaction Status Date / Time No Known Allergies Allergy Verified 04/09/25 07:21 Home Medications ?Medication ?Instructions ?Recorded ?Confirmed ?Type apixaban 5 mg tablet (Eliquis) 5 mg PO BID 07/07/19 04/09/25 History furosemide 40 mg tablet 40 mg PO .qd 07/10/21 04/09/25 History insulin glargine 100 unit/mL (3 3 unit subcut QPM 07/10/21 04/09/25 History mL) subcutaneous pen (Basaglar KwikPen U-100 Insulin) losartan 50 mg tablet 50 mg PO .qd 07/10/21 04/09/25 History metformin 1,000 mg tablet 1,000 mg PO BID 07/10/21 04/09/25 History metoprolol succinate 25 mg 25 mg PO .qd 07/10/21 04/09/25 History tablet,extended release 24 hr simvastatin 40 mg tablet 40 mg PO QPM 07/10/21 04/09/25 History Sedation/Anesthesia: No previous sedation/anesthesia problems (including family history). [facility] Past Medical History Medical History (Updated 02/24/25 @ 00:00 by Arnulfo Townsend) A-fib HLD (hyperlipidemia) HTN (hypertension) Diabetes Surgical History Surgical History History of knee replacement bilateral knees Social History Social History Smoking status: Never smoker Substance use type: does not use Living arrangements: with family Gender identity (if verbalized by the patient): Female Mod Sed Physical Exam Physical Exam Pre Procedural Exam: Normal: Lungs, Heart Size, Heart Rate and Heart Rhythm Hours since solid foods: 12 Hours since liquid intake: 12 Mallampati Classification: class III Internal Medicine - PN: Obj Da Vital Signs Vital Signs: Vital Signs - 24 hr 04/09/25 07:27 Temperature 36.6 C Pulse Rate 80 Respiratory Rate 16 Blood Pressure 147/70 H Pulse Oximetry 100 Oxygen Delivery Room Air Labs 04/09/25 07:20 04/09/25 07:20 Labs: Laboratory Results - last 24 hr 04/09/25 07:20 WBC 8.8 RBC 3.86 L Hgb 12.0 Hct 37.1 MCV 96.1 MCH 31.1 MCHC 32.3 RDW 13.0 Plt Count 248 MPV 10.9 H Immature Gran % (Auto) 0.3 Neut % (Auto) 56.5 Lymph % (Auto) 31.2 Mckenzie % (Auto) 9.6 H Eos % (Auto) 1.8 Baso % (Auto) 0.6 Lymph # (Auto) 2.74 Mckenzie # (Auto) 0.8 H Eos # (Auto) 0.2 Baso # (Auto) 0.1 Abs Immat Gran (auto) 0.03 Absolute Neuts (auto) 5.0 Absolute Nucleated RBC 0.000 Nucleated RBC % 0.0 ASA Classification/Sedation ASA Classification/Sedation ASA Class: III Emergent: No Risks: Risks, benefits and alternatives explained and patient/family accepted plan for sedation. Patient re-evaluated immediately prior to sedation.
--- NOTE | 2025-04-09 08:32 | PM.IMHP ---
H&P: HPI History of Present Illness Date/Time: 04/09/25 08:32 Chief Complaint: Chest pain Narrative: 69-year-old woman with morbid obesity, diabetes, hypertension, paroxysmal atrial fibrillation, and hyperlipidemia presented to the emergency room with chest discomfort last month followed by an outpatient nuclear stress test suggesting ischemia along the territories of RCA and LAD for which a cardiac catheterization with possible PCI has been recommended. Since her discharge she has not had any further chest discomfort. No other symptoms. No bleeding on Eliquis. Stop Eliquis on Wednesday. PMFSH Past Medical History Medical History (Updated 04/09/25 @ 08:34 by Goldy Da Silva MD) A-fib HLD (hyperlipidemia) HTN (hypertension) Diabetes Surgical History Surgical History History of knee replacement bilateral knees Social History Social History Smoking status: Never smoker Substance use type: does not use Living arrangements: with family Gender identity (if verbalized by the patient): Female Meds Home Medications and Allergies Home Medications ?Medication ?Instructions ?Recorded ?Confirmed ?Type apixaban 5 mg tablet (Eliquis) 5 mg PO BID 07/07/19 04/09/25 History furosemide 40 mg tablet 40 mg PO .qd 07/10/21 04/09/25 History insulin glargine 100 unit/mL (3 3 unit subcut QPM 07/10/21 04/09/25 History mL) subcutaneous pen (Basaglar KwikPen U-100 Insulin) losartan 50 mg tablet 50 mg PO .qd 07/10/21 04/09/25 History metformin 1,000 mg tablet 1,000 mg PO BID 07/10/21 04/09/25 History metoprolol succinate 25 mg 25 mg PO .qd 07/10/21 04/09/25 History tablet,extended release 24 hr simvastatin 40 mg tablet 40 mg PO QPM 07/10/21 04/09/25 History Allergies Allergy/AdvReac Type Severity Reaction Status Date / Time No Known Allergies Allergy Verified 04/09/25 07:21 Vital Signs Vital Signs - 24 hr 04/09/25 07:27 Temperature 36.6 C Pulse Rate 80 Respiratory Rate 16 Blood Pressure 147/70 H Pulse Oximetry 100 Oxygen Delivery Room Air Exam Const: General: comfortable HENMT: Mouth: Yes moist mucous membranes Eyes: EOM: EOMs intact bilaterally Neck: Neck: no JVD Resp: Effort & Inspection: normal respiratory effort Auscultation: clear to auscultation bilaterally Cardio: Rate: regular rate Rhythm: regular rhythm Extrem: General: no pedal edema H&P: Results Labs Labs: Short CBC 04/09/25 Range/Units 07:20 WBC 8.8 (4.5-10.0) K/mm3 Hgb 12.0 (12.0-15.0) g/dL Hct 37.1 (37.0-47.0) % Plt Count 248 (150-375) k/mm3 Assessment and Plan Assessment and plan (1) HTN (hypertension): Code(s): I10 - Essential (primary) hypertension Status: Acute (2) A-fib: Code(s): I48.91 - Unspecified atrial fibrillation Status: Acute (3) HLD (hyperlipidemia): Code(s): E78.5 - Hyperlipidemia, unspecified Status: Acute (4) Abnormal nuclear stress test: Code(s): R94.39 - Abnormal result of other cardiovascular function study Status: Acute Plan 69-year-old woman with morbid obesity, diabetes, hypertension, paroxysmal atrial fibrillation, and hyperlipidemia presented to the emergency room with chest discomfort last month followed by an outpatient nuclear stress test suggesting ischemia along the territories of RCA and LAD for which a cardiac catheterization with possible PCI has been recommended -the risk, benefit, alternatives of the cardiac catheterization with possible PCI has been explained to the patient and all questions have been answered -patient expressed understanding and agreeable to proceeding forward
[2025-04-09 08:38] LABS: Anion Gap 5 mmol/L (4-12); Blood Urea Nitrogen 17 mg/dL (7-17); Calcium 9.1 mg/dL (8.4-10.2); Carbon Dioxide 28 mmol/L (22-30); Chloride 106 mmol/L (98-107); Estimated CRCL calculation 83 ml/min; Estimated Glomerular Filt Rate > 60; Glucose 141 mg/dL (65-110); Potassium 3.9 mmol/L (3.4-5.0); Sodium 139 mmol/L (137-145)
--- NOTE | 2025-04-09 09:18 | P.PCNCC_ITS ---
Cardiac Cath Procedure Note Date of procedure:: 04/09/25 Performing physician:: CATHETERIZATION LABORATORY REPORT Procedure Date: 04/09/2025 Referring Physician: Dr. Clifton Anesthesia: Versed and Fentanyl were ordered and given in my presence at 0904, procedure ended at 0915. Supervision of nurse, Nasrin Azar monitored moderate sedation with 2mg Versed and 100mcg Fentanyl was provided for 11 minutes. Pre-op Diagnosis: Abnormal nuclear stress test Post-op Diagnosis: Abnormal nuclear stress test Procedure(s): Left heart catheterization with coronary angiography Access Site: Right radial artery Brief History and Clinical Indications: All risks, benefits and alternatives to left heart catheterization with or without percutaneous coronary intervention was discussed at length with the patient. Risk of complications including but not limited to bleeding, infection, arrhythmia, stroke, worsening kidney function, blood loss, groin hematoma, limb loss, emergency coronary artery bypass grafting, and even were discussed with the patient and all questions were answered. The patient understood and wished to proceed. Time out called, patient name, date of , medical record number, allergies, procedure performed, identify Collar Closer Lockstitch, patient and staff member concurred with accurate data, procedure carried on. Findings: LEFT HEART CATHETERIZATION FINDINGS: 1. Left main: The left main coronary artery is widely patent without any significant obstructive disease. 2. Left anterior descending: The LAD and the diagonal branches have mild luminal irregularities without any significant obstructive angiographic disease. 3. Left circumflex: The left circumflex artery and the main marginal branches have mild luminal irregularities without any significant obstructive angiographic disease. 4. Right coronary artery: The RCA has mild luminal irregularities without any significant obstructive angiographic disease. The RCA is the dominant vessel. 5. Left ventricle: A. End-diastolic pressure 21 mmHg. B. LV gram deferred. C. No significant gradient across aortic valve on catheter pullback. 6. Opening AO pressure 119/65 and closing AO pressure 131/69 Description of Procedure: Informed consent signed and placed in the chart. Patient transferred to crime lab analyst room. Prepped and draped in usual sterile fashion. 2% lidocaine injected subcutaneously in right wrist area. 22-gauge venipuncture catheter used to access the right radial artery with the Seldinger technique. 6-FR slender sheath placed in right radial artery. Nitroglycerin 200mcg, Verapamil 2.5mg, and Heparin 5000U was given intraarterial through the sheath. J wire advanced under fluoroscopy. 5F Ultra diagnostic catheter engaged Left Main Coronary Artery and Right Coronary Artery. Multiple orthogonal angiogram obtained and reviewed The same 5F Ultra catheter was then guided across the aortic valve over a j-wire to obtain LVEDP, LV angiogram deferred. Hemostasis was achieved by application of TR band. Assessment: Normal coronary arteries Post Operative Condition: Stable No significant blood loss Disposition: Home Plan: Can resume Eliquis tomorrow morning. Follow up with Dr. Etienne Da Silva Interventional Cardiology
== END 2025-04-09 12:41 | disposition home or self-care (01) ==
PROVIDERS: Visit Provider Internal Medicine
PROC: 4A023N7 Measurement of Cardiac Sampling and Pressure, Left Heart, Percutaneous Approach (ICD-10-PCS; CPT 93452; principal; 2025-04-09 08:30)
DX: R94.39 Abnormal result of other cardiovascular function study (principal); I48.0 Paroxysmal atrial fibrillation; E78.5 Hyperlipidemia, unspecified; I10 Essential (primary) hypertension; E11.9 Type 2 diabetes mellitus without complications; Z79.01 Long term (current) use of anticoagulants; Z79.4 Long term (current) use of insulin; Z79.84 Long term (current) use of oral hypoglycemic drugs; Z98.890 Other specified postprocedural states
CPT/HCPCS: 36415; 80048; 85025; 93458; C1769; C1887; C1894; J1644; J2003; J2250; J2305; J3010; J7040